=== PATIENT | female | born 1990 | race Caucasian/White ===

== ENCOUNTER 2016-12-11 10:44 | Emergency (ER) | payer OTHER ==
[~2016-12-11] VITALS: Ht 162.6 cm; Wt 79.0 kg
[~2016-12-11 10:44] MED LIST: ALBU8.5H3 INH; AZIT250T94 PO; HYDR-762 PO; IBUP-1542 PO; NO MEDS TAKEN; PRED20TA PO
[2016-12-11 10:52] VITALS: Ht 162.6 cm; Wt 79.0 kg
[2016-12-11] MEDS ORDERED: ALBUTEROL 0.083% (NEB) 2.5 MG/3 ML AMP HHN STA (11:17)
--- NOTE | 2016-12-11 11:24 | ERD ---
ER Documentation Chief Complaint Date/Time DATE: 12/11/16 TIME: 11:21 Chief Complaint Complains of bronchitis Hx of Bronchitis HPI Patient is a 26-year-old female with a past medical history of asthma and bronchitis who presents to the ED with cough, congestion and rhinorrhea 2 months. She states that she has had these symptoms in the past and is always treated with azithromycin. She states that she went to her primary care doctor and was treated with amoxicillin and albuterol, finished the dose 1 week ago. However she states that she still has the symptoms. Denies fever or chills. Denies leg pain or leg swelling. Denies chest pain. Denies hemoptysis or night sweats. Denies recent travel or recent surgery denies seizures or rashes. No other complaints. ROS All systems reviewed and are negative except as per history of present illness. Medications Home Meds Active Scripts Sodium Chloride (Saline Nasal [place]) 30 Ml [place], 30 ML NS BID for 28 Days, SPRAY Prov:NEHEMIAS MONROY PA-C 12/11/16 Azithromycin* (Zithromax*) 250 Mg Tablet, 250 MG PO .HeavenlyPAZEKE DIRECTED, #6 TAB TAKE 500 MG (2 TABS) THE FIRST DAY THEN 250 MG (1 TAB) DAYS 2-5 Prov:NEHEMIAS MONROY PA-C 12/11/16 Albuterol Sulfate* (Proair HFA*) 8.5 Gm Hfa.aer.ad, 2 PUFF INH Q4H Y for WHEEZING AND SOB, #1 INHALER Prov:LEANDRA PORTILLO PA-C 05/23/16 Prednisone* (Prednisone*) 20 Mg Tab, 60 MG PO DAILY for 5 Days, TAB Prov:LEANDRA PORTILLO PA-C 05/23/16 Azithromycin* (Zithromax*) 250 Mg Tablet, 250 MG PO .ZPACK DIRECTED, #6 TAB TAKE 500 MG (2 TABS) THE FIRST DAY THEN 250 MG (1 TAB) DAYS 2-5 Prov:LEANDRA PORTILLO PA-C 05/23/16 Ibuprofen* (Motrin*) 600 Mg Tab, 600 MG PO Q6, #20 TAB Prov:JUAN DILLARD PA-C 03/09/15 Hydrocodone Bit-Acetaminophen* ([place]*) 10-325 Mg Tablet, 1 TAB PO Q6 Y for PAIN , #14 TAB Prov:JUAN DILLARD PA-C 03/09/15 Reported Medications [No Meds Taken ] No Conflict Check, 0 Refills 05/01/10 Allergies Allergies: Coded Allergies: No Known Allergies (Verified Allergy, Mild, 12/11/16) PMhx/Soc Medical and Surgical Hx: pt denies Medical Hx, pt denies Surgical Hx History of Surgery: No Anesthesia Reaction: No Hx Neurological Disorder: No Hx Respiratory Disorders: Yes (bronchitis, asthma) Hx Cardiac Disorders: No Hx Psychiatric Problems: No Hx Miscellaneous Medical Probl: No Hx Alcohol Use: No Hx Substance Use: No Hx Tobacco Use: No Smoking Status: Never smoker FmHx Family History: No coronary disease, No diabetes, No other Physical Exam Vitals Vital Signs Date Time Temp Pulse Resp B/P Pulse Ox O2 Delivery O2 Flow Rate FiO2 12/11/16 13:04 98.4 75 19 112/64 100 Room Air 12/11/16 11:25 62 20 96 21 12/11/16 10:52 97.4 54 20 126/62 98 Physical Exam GENERAL: Well-developed, well-nourished female. Appears in no acute distress. HEAD: Normocephalic, atraumatic. EYES: Pupils are equally reactive bilaterally. EOMs grossly intact. No conjunctival erythema. ENT: Moist mucous membranes. No uvula deviation. No kissing tonsils. No exudates. NECK: Supple. No lymphadenopathy or thyromegaly. No meningismus. negative kernig. negative brudinski. LUNG: Clear to auscultation bilaterally. No rales or coarse breath sounds. rhonchi and wheezes bilaterlaly. HEART: Regular rate and rhythm. No murmurs, rubs or gallops. Extremities: Equal pulses bilaterally. No peripheral clubbing, cyanosis or edema. No unilateral leg swelling. negative carlos sign. no palpable cord. NEUROLOGIC: Alert and oriented. Moving all four extremities. 5/5 strength in all extremities. Normal speech. Steady gait. SKIN: Normal color. Warm and dry. No rashes or lesions. Capillary refill < 2 seconds Results 24 hrs Current Medications Medications (Trade) Dose Ordered Sig/Ciara Route PRN Reason Start Time Stop Time Status Last Admin Dose Admin Albuterol (Proventil 0.083% (Neb)) 5 mg ONCE STAT HHN 12/11/16 11:17 12/11/16 11:20 DC 12/11/16 11:25 Ipratropium [place] (Atrovent 0.02% (Neb)) 0.5 mg ONCE ONCE HHN 12/11/16 11:30 12/11/16 11:31 DC 12/11/16 11:25 Dexamethasone (Decadron) 10 mg ONCE ONCE PO 12/11/16 11:30 12/11/16 11:31 DC 12/11/16 11:28 Procedures/MDM ER COURSE: I kept the patient and/or family informed of laboratory and diagnostic imaging results throughout the emergency room course. IMAGING STUDIES [place] [id number] Radiology Main Line: [phone] DIAGNOSTIC IMAGING REPORT Patient: CARLOS PADILLA : 1990 Age: 26 Sex: F MR #: [id number] DOS: 12/11/16 1117 Ordering MD: NEHEMIAS MONROY PA-C Location: [facility] Room/Bed: PROCEDURE: XR Chest. CLINICAL INDICATION: Cough. TECHNIQUE: Single frontal view. COMPARISON: 05/22/2016. FINDINGS: The lungs are clear. The heart size is normal. There is no pleural effusion. There is no pneumothorax. IMPRESSION: 1. Normal chest radiograph. 2. No change from 05/22/2016. RPTAT: QQ .Reyes Wiggins MD MD Date Time Electronically viewed and signed by .Reyes Wiggins MD, on 12/11/2016 12:08 .R/ CC: NEHEMIAS MONROY PA-C PROCEDURES RT consult, albuterol and Atrovent. Tolerated well with no adverse reaction MEDICAL DECISION MAKING: This is a 26-year-old female with a history of bronchitis who presents with cough, congestion x 2 months. Vital signs were reviewed. Patient is afebrile. Patient is not hypoxic. Patient is not toxic or ill-appearing. X-rays of by radiologist unremarkable. I reexamined patient after administration of albuterol and Atrovent she stated improvement in symptoms. I will be prescribing the patient with azithromycin due to the length of her symptoms. Patient already has albuterol and no albuterol was prescribed. I advised patient to follow-up with a senior cobol developer due to the increase in occurrence of her symptoms. Low suspicion for pneumonia, PE, pneumothorax, ACS, epiglottitis , obstruction, TB, pertussis, meningitis, sepsis. DISCHARGE: At this time, patient is stable for discharge and outpatient management with no new complaints during the ER course. Patient was sent home with azithromycin, saline nasal spray and list of senior cobol developer in the area. Patient will be discharged home with instructions to recheck for new or worsening symptoms such as fever, nausea, weakness, LOC and to follow up with primary care in the next 1 -2 days. Patient was advised to return to the ER for any new or worsening symptoms. Plan was discussed and patient and/or family understands and agrees. Home instructions were given. Departure Diagnosis: Primary Impression: Bronchitis Condition: Stable NEHEMIAS MONROY PA-C Dec 11, 2016 11:24
[2016-12-11] MEDS ORDERED: IPRATROPIUM (NEB) 0.5 MG/2.5 ML AMP HHN ONE (11:30)
[2016-12-11] MEDS ORDERED: DEXAMETHASONE 10 MG/ML 1 ML INJ PO ONE (11:30)
--- NOTE | 2016-12-11 12:08 | RADRPT ---
PROCEDURE: XR Chest. CLINICAL INDICATION: Cough. TECHNIQUE: Single frontal view. COMPARISON: 05/22/2016. FINDINGS: The lungs are clear. The heart size is normal. There is no pleural effusion. There is no pneumothorax. IMPRESSION: 1. Normal chest radiograph. 2. No change from 05/22/2016. RPTAT: QQ .Reyes Wiggins MD, MD Date Time Electronically viewed and signed by .Reyes Wiggins MD, MD on 12/11/2016 12:08 .R/
[2016-12-11] MEDS ORDERED: AZIT250T94 PO (12:58)
[2016-12-11] MEDS ORDERED: SODI30SP2 NS (12:59)
[2016-12-11 13:04] VITALS: BP 112/64; PULSE 75; RESP 19; TEMP 98.4
== END 2016-12-11 13:05 | disposition home or self-care (01) ==
LOC: FTE 10:44
DX: J20.9 Acute bronchitis, unspecified (principal); J45.909 Unspecified asthma, uncomplicated
CPT/HCPCS: 71010; 94664; J1100; Z7502; Z7610